=== PATIENT | male | born 2000 ===

== ENCOUNTER 2022-08-23 20:15 | Emergency (ER) | payer SELFPAY ==
[~2022-08-23] VITALS: Ht 177.8 cm; Wt 68.2 kg
[2022-08-23] MEDS ORDERED: PERTUSS(ACELL),DIPH,TET VAC/PF 0.5 ML SYRINGE IM. ONE (20:30)
[2022-08-23] MEDS ORDERED: BACITRACIN 0.9 GM PACKET OINTMENT TP ONE (20:30)
[2022-08-23] MEDS ORDERED: LIDOCAINE 1% 10 ML VIAL SQ ONE (20:30)
[2022-08-23 20:47] VITALS: BP 123/84
[2022-08-23] MEDS ORDERED: DOXYCYCLINE HYCLATE 100 MG TABLET PO ONE (21:15)
[2022-08-23] MEDS ORDERED: DOXY-354 PO (21:16)
== END 2022-08-23 21:42 | disposition home or self-care (01) ==
LOC: EMS 20:20
DX: S61.215A Laceration without foreign body of left ring finger without damage to nail, initial encounter (principal); F12.90 Cannabis use, unspecified, uncomplicated; W26.8XXA Contact with other sharp object(s), not elsewhere classified, initial encounter; Y93.89 Activity, other specified; Y92.89 Other specified places as the place of occurrence of the external cause; Y99.8 Other external cause status
CPT/HCPCS: 99283; 90715; 90471; 12001; J3490